=== PATIENT | male | born 1950 | race Caucasian/White ===

== ENCOUNTER 2021-11-11 02:20 | Emergency (ER) | payer OTHER ==
[2021-11-11 04:04] LABS: #Basophils 0.1 10x3/uL (0.0-0.2); #Eosinphils 0.1 10x3/uL (0.0-0.5); #Monocytes 0.9 10x3/uL (0.0-1.1); #Neutrophils 7.7 10x3/uL (1.5-8.4); %Basophils 0.7 % (0.0-2.0); %Eosinophils 0.5 % (0.0-6.0); %Lymphocytes 16.1 % (18.0-47.0); %Monocytes 8.3 % (0.0-10.0); %Neutrophils 74.2 % (40.0-75.0); Hemoglobin 13.6 g/dL (13.5-17.5); Mean Corpuscular Hemoglobin 30.6 pg (27.0-33.0); Mean Corpuscular Volume 92.6 fl (81.2-95.1); Mean Platelet Volume 9.2 fl (7.4-10.4); Platelet Count 237 10x3/uL (150-450); RBC Distribution Width 14.8 % (11.5-14.5); Red Blood Cell (RBC) Count 4.45 10x6/uL (4.32-5.72); White Blood Cell (WBC) Count 10.4 10x3/uL (3.5-10.5)
[2021-11-11] MEDS ORDERED: Furosemide 40 MG/4 ML VIAL ONE (04:20)
[2021-11-11 04:24] LABS: ALT (SGPT) 9 U/L (8-55); AST (SGOT) 14 U/L (5-34); Albumin 3.5 g/dL (3.4-4.8); Alkaline Phosphatase 104 U/L (40-110); Anion Gap 14 mmol/L (10-20); BUN (Urea Nitrogen) 20 mg/dL (8.4-25.7); Bilirubin, Total 2.3 mg/dL (0.2-1.2); Calc. Creatinine Clearance 0 mL/min (70-130); Calcium 8.8 mg/dL (7.8-10.44); Carbon Dioxide 21 mmol/L (23-31); Chloride 112 mmol/L (98-107); Estimated GFR 84; Globulin 3.3 g/dL (2.4-3.5); Glucose 102 mg/dL (80-115); Potassium 3.9 mmol/L (3.5-5.1); Protein, Total 6.8 g/dL (5.8-8.1); Sodium 143 mmol/L (136-145)
[2021-11-11 06:09] LABS: SARS-CoV-2 NAA Rapid Test Not Detected (NotDetected)
== END 2021-11-11 12:55 | disposition short-term general hospital (02) ==
LOC: CSHERS 02:20
DX: I11.0 Hypertensive heart disease with heart failure (principal); I50.9 Heart failure, unspecified; E11.9 Type 2 diabetes mellitus without complications; E78.5 Hyperlipidemia, unspecified; R09.02 Hypoxemia; Z20.822 Contact with and (suspected) exposure to COVID-19
CPT/HCPCS: 36415; 71045; 80053; 82553; 83880; 84484; 85025; 93005; 96374; J1940